=== PATIENT | male | born 1995 | race Caucasian/White ===

== ENCOUNTER 2019-08-02 21:28 | Emergency (ER) | payer SELFPAY ==
[2019-08-02] MEDS ORDERED: Albuterol/Ipratropium 3.0-0.5 MG/3 ML Neb Soln NEB ONE (22:22)
[2019-08-02] MEDS ORDERED: Ibuprofen 800 MG Tab PO ONE (22:41)
--- NOTE | 2019-08-02 22:42 | EDM.PDOC ---
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 He has developed fever chills headache paroxysmal nonproductive cough with appetite mostly preserved. He does have diffuse myalgia. He has a history of asthma and uses his inhaler on a as needed basis usually when exposed to cats or certain pollens and danders. He used it last this afternoon with little effect on the cough. Perez usually enjoys good health. He did not have a flu shot. He works on a work over [employer]. Onset: Sudden Onset Date: 08/01/19 Duration: Hour(s): (With symptoms yesterday morning.), Getting Worse Location: Reports: Head (Paroxysmal nonproductive cough), Chest, Generalized ( headache neurolyse myalgia), Other (Fever and chills) Quality: Reports: Ache Severity: Moderate (Neurolyse body aches) Improves with: Reports: None Worsens with: Reports: Other Context: Denies: Activity, Exercise, Lifting, Sick Contact, Trauma, Other Associated Symptoms: Reports: Chest Pain, Cough, Fever/Chills, Headaches, Malaise, Shortness of Breath, Weakness. 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.) Generalized Pain Score (Numeric/FACES): 4 - Related Data Allergies Allergy/AdvReac Type Severity Reaction Status Date / Time No Known Allergies Allergy Verified 08/02/19 22:25 Home Meds: Home Meds Albuterol Sulfate [Proair Hfa] 8.5 gm IH DAILY 08/26/18 [History] Fluticasone/Salmeterol [Advair Hfa 45-21 Mcg Inhaler] 1 puff IH DAILY 08/26/18 [ History] Albuterol Sulfate [Proair Hfa] 8.5 gm IH Q8HR PRN #1 hfa.aer.ad 05/22/19 [Rx] Amphetamine/Dextroamphetamine [Adderall XR] 30 mg PO DAILY 05/22/19 [History] methylPREDNISolone [Medrol] 4 mg PO ASDIRECTED #1 dosepk 05/22/19 [Rx] Hydrocodone/Chlorphen P-Stirex [Hydrocodone-Chlorphen ER Susp] 5 ml PO Q12H PRN #60 ml 08/03/19 [Rx] Oseltamivir [Tamiflu] 75 mg PO BID #9 cap 08/03/19 [Rx] Past Medical History Respiratory History: Reports: Asthma Psychiatric History: Reports: ADHD - Infectious Disease History Infectious Disease History: Reports: Chicken Pox - Past Surgical History Respiratory Surgical History: Reports: None Social & Family History - Family History Family Medical History: Noncontributory - Caffeine Use Caffeine Use: Reports: Energy Drinks - Living Situation & Occupation Living situation: Reports: Single 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 ED ROS GENERAL - Review of Systems Review Of Systems: See Below Constitutional: Reports: Fever, Chills, Malaise, Weakness, Fatigue, Decreased Appetite HEENT: Reports: Throat Pain Respiratory: Reports: Shortness of Breath, Wheezing, Cough. Denies: Pleuritic Chest Pain, Sputum (Paroxysmal cough nonproductive), Hemoptysis Cardiovascular: Reports: Chest Pain, Dyspnea on Exertion, Lightheadedness. Denies: Blood Pressure Problem, Claudication (Upper chest pain from coughing so much), Edema (Coughing so much), Orthopnea, Palpitations Endocrine: Reports: Fatigue GI/Abdominal: Reports: Decreased Appetite. Denies: Diarrhea, Nausea, Vomiting : Reports: No Symptoms Musculoskeletal: Reports: Muscle Pain Skin: Reports: No Symptoms Neurological: Reports: Dizziness (Dizzy when he stands up at times) Psychiatric: Reports: No Symptoms Hematologic/Lymphatic: Reports: No Symptoms Immunologic: Reports: No Symptoms ED EXAM, SEPSIS - Physical Exam Exam: See Below Exam Limited By: No Limitations General Appearance: Alert, WD/WN, No Apparent Distress, Other (Temperature is 38.6. Pulse is 95 and sinus respiratory of 18 BP 147/83 with O2 sats of 97% on room air.) Eye Exam: Bilateral Eye: Normal Inspection Ears: Normal TMs Throat/Mouth: Other Head: Atraumatic (Mild inflammation of Waldeyer's ring from coughing. There is no exudate.), Normocephalic Neck: Normal Inspection, Supple, Non-Tender, Full Range of Motion. No: Lymphadenopathy (L), Lymphadenopathy (R) Respiratory/Chest: No Respiratory Distress, Normal Breath Sounds, Chest Non- Tender, Wheezing. No: Respiratory Distress, Rales, Rhonchi Cardiovascular: Normal Peripheral Pulses, Regular Rate, Rhythm, No Edema, No Gallop, No Murmur, No Rub Peripheral Pulses: 3+: Posterior Tibial (L), Posterior Tibial (R), Dorsalis Pedis (L), Dorsalis Pedis (R) GI/Abdominal Exam: Normal Bowel Sounds, Soft, Non-Tender, No Organomegaly, No Abnormal Bruit, No Mass, Pelvis Stable Extremities: Normal Inspection, Normal Range of Motion, Non-Tender, No Pedal Edema Neurological: Alert, Oriented, CN II-XII Intact, Normal Cognition Psychiatric: Normal Affect, Normal Mood Skin: Warm, Dry, Intact, Normal Color, No Rash Course - Vital Signs Last Recorded V/S: Last Vital Signs Temp 38.6 C H 08/02/19 22:22 Pulse 95 08/02/19 22:22 Resp 18 08/02/19 22:22 BP 147/83 H 08/02/19 22:22 Pulse Ox 97 08/02/19 22:42 - Orders/Labs/Meds Orders: Active Orders 24 hr Category Date Time Status RT Aerosol Therapy [RC] ASDIRECTED Care 08/02/19 22:22 Active Chest 1V Frontal [CR] Stat Exams 08/02/19 22:22 Taken Meds: Medications Discontinued Medications Generic Name Dose Route Start Last Admin Trade Name Abel PRN Reason Stop Dose Admin Albuterol/Ipratropium 3 ml 08/02/19 22:22 08/02/19 22:40 Duoneb 3.0-0.5 Mg/3 Ml NEB 08/02/19 22:23 3 ml ONETIME ONE Administration Ibuprofen 800 mg 08/02/19 22:41 08/02/19 23:08 Motrin PO 08/02/19 22:42 800 mg ONETIME ONE Administration Oseltamivir Phosphate 75 mg 08/02/19 23:58 08/03/19 00:13 Tamiflu PO 08/02/19 23:59 75 mg ONETIME ONE Administration Promethazine HCl/Codeine 20 ml 08/02/19 23:58 08/03/19 00:18 Phenergan With Codeine PO 08/02/19 23:59 20 ml ONETIME ONE Administration - Radiology Interpretation Free Text/Narrative:: 24-year-old male presents the ED with acute onset of high fever with some chills associated mild sore throat and severe paroxysmal cough to the point of near emesis. Also gets lightheaded from coughing so much. He has a history of asthma and feels that he is wheezing a bit more than normal. He has generalized myalgia and a headache all symptoms of influenza. Symptoms started about 36 hours ago. He is in no respiratory distress but does have mild wheezing. He will be treated with a DuoNeb neb treatment while here. He will have 1 view chest x-ray. Influenza screen to be done. Given Motrin 800 mg-year -old for fever relief. - Re-Assessments/Exams Free Text/Narrative Re-Assessment/Exam: 08/02/19 23:36 chest x-ray done portably is within normal limits from no signs of pneumonia. No signs of significant hyperinflation either. Cardiac silhouette is normal. Influenza screen is positive for the type B form. Will be given Tamiflu 75 mg by mouth now and Phenergan with codeine cough syrup 20 mls to help get him through the night. Write a prescription for the remainder of the Tamiflu for another 9 doses and Penntuss cough syrup 5 mils every 12 hours as needed for cough relief .He will need to be off work for the next week due to being contagious to others. Note will be written in this regard. Departure - Departure Time of Disposition: 23:59 Disposition: Home, Self-Care 01 Condition: Fair Clinical Impression: Influenza B - Discharge Information *PRESCRIPTION DRUG MONITORING PROGRAM REVIEWED*: Not Applicable *COPY OF PRESCRIPTION DRUG MONITORING REPORT IN PATIENT DUTCH: Not Applicable Prescriptions: Hydrocodone/Chlorphen P-Stirex [Hydrocodone-Chlorphen ER Susp] 5 ml PO Q12H PRN #60 ml PRN Reason: cough relief Oseltamivir [Tamiflu] 75 mg PO BID #9 cap Instructions: Influenza, Adult, [id number] Referrals: PCP,None [Primary Care Provider] - Forms: ED Department Discharge, ED Return to Work/School Form Additional Instructions: Evaluation in the emergency room today in regards to acute onset of high fever, body aches mild headache and paroxysmal nonproductive cough with aggravation of your asthma starting yesterday morning. Signs and symptoms of influenza were evident. You are tested positive for the influenza type B virus which has been present in the community, for the last 3-1/2 months. Treatment is fever relief with Motrin 600 mg every 6 hours to control headache, body ache and fever. Likely need this for the next 2 days. You will be started on antiviral medication Tamiflu 75 mg twice daily for the next 5 days with the first tablet provided through the ED tonight. Prescription also written for cough syrup Penntuss 5 mils every 12 hours as needed for cough relief. It takes a good hour to work so plan on taking a good hour before going to bed. Given Phenergan with codeine cough syrup in the ED tonight to help relieve cough over the next 6 hours and hopefully provide some sleep. You will need to be off work for the next 7 days due to contagious and stay others as influenza is extremely contagious. Has been written in this regard. You are to expect gradual improvement over the next 48 hours usually after the first 3 or 4 tablets of Tamiflu have been taken the body aches the, fever and headache are relieved. He will still cough for up to 14 days. You may continue to use your albuterol inhaler as needed 2 puffs every 3 hours as needed for relief of wheezing. Continue plenty of fluids and diet as tolerated. Sepsis Event Note - Evaluation Sepsis Screening Result: No Definite Risk - Focused Exam Vital Signs: Vital Signs Temp Pulse Resp BP Pulse Ox Pulse Ox 08/02/19 22:42 97 08/02/19 22:22 38.6 C H 95 18 147/83 H 97 Date Exam was Performed: 08/03/19 Time Exam was Performed: 00:58 - My Orders Last 24 Hours: My Active Orders 08/02/19 22:22 RT Aerosol Therapy [RC] ASDIRECTED Chest 1V Frontal [CR] Stat - Assessment/Plan Last 24 Hours: My Active Orders 08/02/19 22:22 RT Aerosol Therapy [RC] ASDIRECTED Chest 1V Frontal [CR] Stat
[2019-08-02] MEDS ORDERED: Oseltamivir 75 MG Cap PO ONE (23:58)
[2019-08-02] MEDS ORDERED: Codeine/Promethazine 10-6.25 MG/5 ML Syrup 5 ML UD Cup PO ONE (23:58)
--- NOTE | 2019-08-03 06:55 | CR ---
Chest: Portable view of the chest was obtained. Comparison: No previous chest x-ray. Heart size and mediastinum are within normal limits for portable technique. Lungs are clear with no acute parenchymal change. Bony structures show minimal scoliosis within the spine. Impression: 1. Nothing acute is seen on portable chest x-ray. Diagnostic code #2 This report was dictated in [place] Standard Time
== END 2019-08-03 00:20 | disposition home or self-care (01) ==
LOC: JD.ED 21:28
DX: J10.1 Influenza due to other identified influenza virus with other respiratory manifestations (principal); J45.909 Unspecified asthma, uncomplicated; F90.9 Attention-deficit hyperactivity disorder, unspecified type; Z79.899 Other long term (current) drug therapy
CPT/HCPCS: 71045; 87804; 94640; 99284; A9270; 99283; J7620-GY

== ENCOUNTER 2019-08-06 10:40 | Emergency (ER) | payer SELFPAY ==
--- NOTE | 2019-08-06 12:10 | EDM.PDOC ---
ED HPI GENERAL MEDICAL PROBLEM - General Chief Complaint: Respiratory Problem Stated Complaint: COUGHING BLOOD Time Seen by Provider: 08/06/19 11:39 Source of Information: Reports: Patient, RN Notes Reviewed History Limitations: Reports: No Limitations - History of Present Illness INITIAL COMMENTS - FREE TEXT/NARRATIVE: Patient is a 24-year-old male who presents to the ED for the evaluation of ongoing cough. Patient notes that he was recently diagnosed with influenza B in this ER a few days ago. He states since then he has been having increased cough so much so that he cannot sleep or get much rest. He notes that he is coughing up small streaks of blood in his sputum as well. He states this is not every time though. He states that his disease course is getting better as expected, but the cough is just causing him issues. He comes to the ER today requesting a refill of the cough medication that was given to him previously. He is not complaining of any chest pain, shortness of breath or wheezing. He does state that he has a prior history of asthma. - Related Data Allergies Allergy/AdvReac Type Severity Reaction Status Date / Time No Known Allergies Allergy Verified 08/06/19 11:40 Home Meds: Home Meds Albuterol Sulfate [Proair Hfa] 8.5 gm IH DAILY 08/26/18 [History] Albuterol Sulfate [Proair Hfa] 8.5 gm IH Q8HR PRN #1 hfa.aer.ad 05/22/19 [Rx] Amphetamine/Dextroamphetamine [Adderall XR] 30 mg PO DAILY 05/22/19 [History] methylPREDNISolone [Medrol] 4 mg PO ASDIRECTED #1 dosepk 05/22/19 [Rx] Hydrocodone/Chlorphen P-Stirex [Hydrocodone-Chlorphen ER Susp] 5 ml PO Q12H PRN #60 ml 08/03/19 [Rx] Oseltamivir [Tamiflu] 75 mg PO BID #9 cap 08/03/19 [Rx] Hydrocodone/Chlorphen P-Stirex [Hydrocodone-Chlorphen ER Susp] 5 ml PO Q12H PRN #120 ml 08/06/19 [Rx] Past Medical History Respiratory History: Reports: Asthma Psychiatric History: Reports: ADHD - Infectious Disease History Infectious Disease History: Reports: Chicken Pox Social & Family History - Family History Family Medical History: Noncontributory - Tobacco Use Smoking Status *Q: Never Smoker - Caffeine Use Caffeine Use: Reports: None - Recreational Drug Use Recreational Drug Use: No - Living Situation & Occupation Living situation: Reports: Single 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 Respiratory: Reports: Cough, Sputum (blood tinged from time to time). Denies: Shortness of Breath, Wheezing ED EXAM, GENERAL - Physical Exam Exam: See Below Exam Limited By: No Limitations General Appearance: Alert, WD/WN, No Apparent Distress Eye Exam: Bilateral Eye: EOMI, Normal Inspection, PERRL Ears: Normal External Exam Nose: Normal Inspection Throat/Mouth: Normal Inspection, Normal Lips, Normal Teeth, Normal Gums, Normal Oropharynx, Normal Voice, No Airway Compromise Head: Atraumatic, Normocephalic Neck: Normal Inspection Respiratory/Chest: No Respiratory Distress, Lungs Clear, Normal Breath Sounds, No Accessory Muscle Use, Chest Non-Tender Cardiovascular: Normal Peripheral Pulses, Regular Rate, Rhythm, No Murmur Peripheral Pulses: 3+: Radial (L), Radial (R) GI/Abdominal: Normal Bowel Sounds, Soft, Non-Tender, No Distention, No Mass Extremities: Normal Inspection, Normal Capillary Refill Neurological: Alert, Oriented, Normal Cognition, No Motor/Sensory Deficits Psychiatric: Normal Affect, Normal Mood Skin Exam: Warm, Dry, Intact, Normal Color, No Rash Course - Vital Signs Last Recorded V/S: Last Vital Signs Temp 97.2 F 08/06/19 11:41 Pulse 86 08/06/19 11:41 Resp 16 08/06/19 11:41 BP 147/91 H 08/06/19 11:41 Pulse Ox 97 08/06/19 11:41 - Re-Assessments/Exams Free Text/Narrative Re-Assessment/Exam: 08/06/19 12:14 Patient presents to the ED for evaluation of his ongoing cough. He states that he has not having any other symptoms, and is simply needing a refill of his cough medicine at this time. I will provide this for the patient so he might get some rest and relief from the coughing. I will have him follow-up in clinic for any further issues or concerns. He agrees to do as such. Departure - Departure Time of Disposition: 12:08 Disposition: Home, Self-Care 01 Condition: Fair Clinical Impression: Cough - Discharge Information *PRESCRIPTION DRUG MONITORING PROGRAM REVIEWED*: No *COPY OF PRESCRIPTION DRUG MONITORING REPORT IN PATIENT DUTCH: No Prescriptions: Hydrocodone/Chlorphen P-Stirex [Hydrocodone-Chlorphen ER Susp] 5 ml PO Q12H PRN #120 ml PRN Reason: Cough Instructions: Cough, Adult, [id number] Referrals: PCP,Not In Area [Primary Care Provider] - Forms: ED Department Discharge Additional Instructions: You were evaluated in the ER today for your ongoing cough after diagnosis of influenza B this last week. There were no other emergent symptoms identified at this ER visit. You were having issues where you could not stop coughing so much so that it would not let you sleep, you were given a refill of your prescription of the cough medicine you are provided at your last visit. Please take 5 to 10 mL's every 12 hours for cough. Please do not drive while taking this medication. Please return to the ER at any time if your symptoms change or worsen. Sepsis Event Note - Evaluation Sepsis Screening Result: No Definite Risk - Focused Exam Vital Signs: Vital Signs Temp Pulse Resp BP Pulse Ox 08/06/19 11:41 97.2 F 86 16 147/91 H 97 Date Exam was Performed: 08/06/19 Time Exam was Performed: 12:11
== END 2019-08-06 12:29 | disposition home or self-care (01) ==
LOC: JD.ED 10:40
DX: R05 Cough (principal); J45.909 Unspecified asthma, uncomplicated
CPT/HCPCS: 99282; 99283